=== PATIENT | male | born 1965 | race Caucasian/White ===

== ENCOUNTER 2018-04-15 10:50 | Emergency (ER) | payer MEDICAID ==
[~2018-04-15] VITALS: Ht 172.7 cm; Wt 72.6 kg
[2018-04-15 10:55] VITALS: BP_SYST 150
--- NOTE | 2018-04-15 10:58 | NUR ---
Pt placed to ER bed 06. Report given to ALMA Rivers.
--- NOTE | 2018-04-15 11:00 | NUR ---
Pt complains of laceration third left digit s/p using a bennett machete last night. Pt states he accidentally cut his finger last night, and wrapped finger and took off bandage this morning and active bleeding noted. Pt denies N/V or fever. No other injuries/complaints per patient or noted. at bedside.
--- NOTE | 2018-04-15 11:02 | NUR ---
ER Dr. Dumont at bedside examining patient.
[2018-04-15] MEDS ORDERED: DIPH-TET-PERTUS Vaccine 0.5 ML VIAL (ADACEL) I.M. ONE (11:15)
[2018-04-15] MEDS ORDERED: LIDOCAINE 1% 10 MG/ML, 20 ML MDV INJ ONE (11:15)
--- NOTE | 2018-04-15 11:40 | NUR ---
Patient has a 3 cm laceration to third left digit. Dr. Dumont applied 5 sutures using sterile technique. Edges well approximated. Site cleansed with NS. Dressing applied to site. No bleeding noted. Pt tolerated well.
[2018-04-15 12:00] VITALS: BP_SYST 141
--- NOTE | 2018-04-15 12:00 | NUR ---
Patient given written and verbal discharge instructions and verbalizes understanding. ER MD discussed with patient the results and treatment provided. Patient in stable condition. ID arm band removed. No Rx given. Patient educated on pain management and to follow up with PMD. Pain Scale 0. Opportunity for questions provided and answered. Medication side effect fact sheet provided.
[2018-04-15] MEDS ORDERED: BACITRACIN 1 GM OINT TP ONE (12:01)
== END 2018-04-15 12:00 | disposition home or self-care (01) ==
LOC: SED 10:50
DX: S61.213A Laceration without foreign body of left middle finger without damage to nail, initial encounter (principal); I10 Essential (primary) hypertension; W26.0XXA Contact with knife, initial encounter; Y93.89 Activity, other specified; Y92.89 Other specified places as the place of occurrence of the external cause; Y99.8 Other external cause status
CPT/HCPCS: 12002; 90471; 90715; 99283; J2001

== ENCOUNTER 2020-05-25 23:25 | Emergency (ER) | payer MEDICAID ==
[~2020-05-25] VITALS: Ht 170.2 cm; Wt 80.7 kg
[2020-05-25 23:25] VITALS: BP_SYST 144
[2020-05-26] MEDS ORDERED: DIPH-TET-PERTUS Vaccine 0.5 ML VIAL (ADACEL) I.M. ONE (00:30)
[2020-05-26 00:42] VITALS: BP_SYST 144
== END 2020-05-26 00:42 | disposition home or self-care (01) ==
LOC: SED 23:25
DX: H18.822 Corneal disorder due to contact lens, left eye (principal); H20.012 Primary iridocyclitis, left eye; H10.89 Other conjunctivitis; I10 Essential (primary) hypertension
CPT/HCPCS: 90715; 99283